=== PATIENT | male | born 1965 | race Caucasian/White ===

== ENCOUNTER 2025-07-27 19:29 | Emergency (ER) | payer BC, OTHER ==
[2025-07-27] MEDS ORDERED: Boostrix 0.5 ML (Tdap) VIAL (>/=7 yrs of age) ONE (20:09)
[2025-07-27] MEDS ORDERED: Bacitracin 1 PK ONE (20:42)
[2025-07-27] MEDS ORDERED: HYDROcodone/Acetaminophen 5/325 mg Tablet ONE (20:50)
== END 2025-07-27 20:58 | disposition home or self-care (01) ==
LOC: MADERS 19:29
DX: S92.421A Displaced fracture of distal phalanx of right great toe, initial encounter for closed fracture (principal); S91.201A Unspecified open wound of right great toe with damage to nail, initial encounter; S90.211A Contusion of right great toe with damage to nail, initial encounter; F17.220 Nicotine dependence, chewing tobacco, uncomplicated; W20.8XXA Other cause of strike by thrown, projected or falling object, initial encounter
CPT/HCPCS: 11740; 11760; 90471; 90715; J0665